=== PATIENT | female | born 1960 | race Caucasian/White ===

== ENCOUNTER → 2016-03-28 | Day surgery (SDC) | payer OTHER ==
--- NOTE | 2016-03-29 13:16 | PATH ---
Surgical Pathology Report Patient Name: AGUSTIN CARPENTER [facility]. Rec. #: [id number] /Age/Gender: 1960 (Age: 55) / F Account: [id number] Location: [facility] BRE[facility] Taken: 03/28/2016 Received: 03/28/2016 Reported: 03/29/2016 Physicians: Rashaad Seo M.D. 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 Electronically Signed Alexa Novak M.D. Gross Description Received in formalin, labeled "left axilla core biopsy," are 10 mcneill-yellow, cylindrical portions of fibroadipose tissue ranging from 0.3-0.9 cm. in length and averaging 0.1 cm. in diameter. The specimen is submitted in toto in one cassette. Time to formalin fixation: 2 minutes Total formalin fixation time: Approximately 9 hours. 03/28/2016 [facility]03/28/2016
== END | disposition home or self-care (01) ==
LOC: FRADUS-SUR 12:23
PROVIDERS: ATTEND Surgery Surgical Oncology
PROC: 07B63ZX Excision of Left Axillary Lymphatic, Percutaneous Approach, Diagnostic (ICD-10-PCS; principal; 2016-03-28)
PROC: BH47ZZZ Ultrasonography of Upper Extremity (ICD-10-PCS; 2016-03-28)
DX: D24.2 Benign neoplasm of left breast (principal)
CPT/HCPCS: 19083; 88305-TC